=== PATIENT | male | born 1970 | race Caucasian/White ===

== ENCOUNTER 2018-05-03 00:26 | Emergency (ER) | payer OTHER ==
[~2018-05-03] VITALS: Ht 175.3 cm; Wt 88.5 kg
[~2018-05-03 00:26] MED LIST: AMOX500 PO; Bactrim Ds Tab1 EACH PO; CEPH500 PO; HYDACE5 PO; LISI10 PO; LISI5 PO; MECL25 PO; NAPR550 PO; PROM25 PO; VERA240ERA PO
[2018-05-03] MEDS ORDERED: Tamiflu75 MG PO (01:24)
[2018-05-03] MEDS ORDERED: BENZ100A PO (01:24)
== END 2018-05-03 01:35 | disposition home or self-care (01) ==
LOC: ER 00:26
DX: R05 Cough (principal); Z79.899 Other long term (current) drug therapy; I10 Essential (primary) hypertension
CPT/HCPCS: 71046; 99283-25